=== PATIENT | male | born 2000 | race Caucasian/White ===

== ENCOUNTER 2024-04-01 13:33 | Emergency (ER) | payer OTHER ==
[~2024-04-01] VITALS: Ht 180.3 cm; Wt 84.1 kg
[2024-04-01 13:37] VITALS: BP 148/83; PULSE 64; RESP 18; TEMP 97.8; O2SAT 100
== END 2024-04-01 15:03 | disposition home or self-care (01) ==
LOC: ER 13:33
DX: S90.31XA Contusion of right foot, initial encounter (principal); W20.8XXA Other cause of strike by thrown, projected or falling object, initial encounter; Y92.89 Other specified places as the place of occurrence of the external cause; Y93.89 Activity, other specified; Y99.0 Civilian activity done for income or pay
CPT/HCPCS: 99281